=== PATIENT | male | born 1965 | race Caucasian/White ===

== ENCOUNTER 2019-01-26 07:12 | Day surgery (SDC) | payer OTHER ==
[2019-01-26] MEDS ORDERED: MIDAZOLAM 2 MG/2 ML VIAL ONE (09:53)
[2019-01-26] MEDS ORDERED: fentaNYL 0.05 MG/ML VIAL ONE (09:53)
[2019-01-26] MEDS ORDERED: LIDOCAINE 2% 100 MG/5 ML UJET TP ONE (09:53)
== END 2019-01-26 14:00 | disposition home or self-care (01) ==
LOC: MDS 07:12 → MMU 07:15 → MDS 14:00
PROVIDERS: ATTEND Internal Medicine Gastroenterology
DX: Z12.11 Encounter for screening for malignant neoplasm of colon (principal); D12.3 Benign neoplasm of transverse colon; K57.30 Diverticulosis of large intestine without perforation or abscess without bleeding; I10 Essential (primary) hypertension; K21.9 Gastro-esophageal reflux disease without esophagitis; F17.210 Nicotine dependence, cigarettes, uncomplicated; E11.9 Type 2 diabetes mellitus without complications; Z98.890 Other specified postprocedural states; Z79.84 Long term (current) use of oral hypoglycemic drugs; Z79.899 Other long term (current) drug therapy
CPT/HCPCS: 45385; J3010; J2250